=== PATIENT | female | born 1985 | race Caucasian/White ===

== ENCOUNTER 2020-04-30 03:20 | Inpatient (IN) | payer BC ==
[2020-04-30 05:01] LABS: Basophils % (A) 0 %; Eosinophils % (A) 0 %; HCT 38.8 % (34.0-46.0); HGB 13.6 gm/dL (11.4-16.0); Lymphocytes # (A) 1.2 k/uL (1.0-4.8); Lymphocytes % (A) 6 %; MCHC 35.2 g/dL (31.0-37.0); MCV 93.8 fL (80.0-100.0); Mean Platelet Volume 7.7; Monocytes # (A) 0.5 k/uL (0-1.0); Monocytes % (A) 2 %; Neutrophils # (A) 19.1 k/uL (1.3-7.7); Neutrophils % (A) 92 %; Platelet Count 278 k/uL (150-450); RBC 4.14 m/uL (3.80-5.40); RDW 12.8 % (11.5-15.5); WBC 20.9 k/uL (3.8-10.6)
[2020-04-30] MEDS ORDERED: CARBOPROST TROMETHAMINE 250 MCG/ML 1 ML AMP IM PRN (05:03)
[2020-04-30] MEDS ORDERED: OXYTOCIN 10 UNIT/ML 1 ML VIAL IM PRN (05:03)
[2020-04-30] MEDS ORDERED: TERBUTALINE 1 MG/ML VIAL SQ PRN (05:03)
[2020-04-30] MEDS ORDERED: LIDOCAINE 0.5% (PF) 5 MG/ML (50 ML SDV) SQ PRN (05:03)
[2020-04-30] MEDS ORDERED: METHYLERGONOVINE 0.2 MG/ML 1 ML AMP IM PRN (05:03)
[2020-04-30 05:10] LABS: Creatinine,Urine Random 144.7 mg/dL; Protein/Creatinine Ratio,Urine 0.097
[2020-04-30 05:12] LABS: ALT 10 U/L (4-34); AST 18 U/L (14-36); African American GFR (CKD) >90 (>60 ml/min/1.73 sqM); Blood Urea Nitrogen 11 mg/dL (7-17); LDH 492 U/L (313-618); Non-African American GFR(CKD) >90 (>60 ml/min/1.73 sqM); Uric Acid 4.3 mg/dL (3.7-7.4)
[2020-04-30] MEDS ORDERED: LACTATED RINGERS 1,000 ML IV SCH (05:15)
[2020-04-30 05:37] LABS: Appearance,Urine Cloudy (Clear); Bacteria,Urine Rare /hpf; Bilirubin,Urine Negative (Negative); Blood,Urine Trace (Negative); Color,Urine Yellow; Glucose,Urine (UA) Negative (Negative); Hyaline Casts,Urine 1 /lpf (0-2); Ketones,Urine 1+ (Negative); Leukocyte Esterase,Urine Large (Negative); Mucus,Urine Rare /hpf; Nitrite,Urine Negative (Negative); Protein,Urine Trace (Negative); RBC,Urine 1 /hpf (0-5); Squamous Epithelial Cell,Urine 9 /hpf (0-4); Urobilinogen,Urine <2.0 mg/dL (<2.0); WBC,Urine 15 /hpf (0-5)
[2020-04-30] MEDS: LACTATED RINGERS 1,000 ML IV SCH (06:15)
--- NOTE | 2020-04-30 06:34 | P.HPOB ---
History of Present Illness H&P Date: 04/30/20 Chief Complaint: Labor at 39-2/7 weeks' This is a 34-year-old 1 para 0 woman with an estimated due date of 05/04/2020 based on LMP consistent with 20 week ultrasound who presents in spontaneous active labor. She had onset of contractions on at approximately 10 PM last night which did progress. She presented to labor and delivery triage and was found to be in active labor having progress from 1-4 cm during observation. She did have some elevated blood pressures in triage in the 160s over 80s. She had no prior history of hypertension in the . She de nied headaches, visual changes, vaginal bleeding. has been otherwise uncomplicated. She is of advanced maternal age. She has a history of esophageal achalasia with difficulty swallowing. Laboratory data: Blood type A+, antibody screen negative, rubella immune, VDRL nonreactive, hepatitis B surface antigen negative, HIV negative, gonorrhea and clinically cultures negative, glucose tolerance testing within normal limits, group B strep negative. Review of Systems All systems: negative Past Medical History Past Medical History: GERD/Reflux Additional Past Medical History / Comment(s): ACHALASIA OF ESOPHAGUS History of Any Multi-Drug Resistant Organisms: None Reported Additional Past Surgical History / Comment(s): EGD, MULTIPLE SURGERYS ON ESOPHAGUS- SURGERY ON FLAP IN ESOPHAGUS AND ESOPHAGUS WAS NICKED AND HAD TO BE REPAIRED BY GOING THROUGH HER BACK. Past Anesthesia/Blood Transfusion Reactions: No Reported Reaction Past Psychological History: No Psychological Hx Reported Smoking Status: Current every day smoker Past Alcohol Use History: None Reported, Rare Past Drug Use History: None Reported - Past Family History Mother Family Medical History: Cancer Additional Family Medical History / Comment(s): MELANOMA Medications and Allergies Home Medications Medication Instructions Recorded Confirmed Type Omeprazole [PriLOSEC] 20 mg PO AC-BID 04/30/20 04/30/20 History Pnv No.95/Ferrous Fum/Folic AC 1 each PO DAILY 04/30/20 04/30/20 History [ Multivitamin Tablet] Allergies Allergy/AdvReac Type Severity Reaction Status Date / Time steve Allergy Unknown THROAT Verified 04/30/20 03:26 SWELLING , DYSPNEA Exam Vital Signs Temp Pulse Resp BP 04/30/20 05:37 98.2 F 72 16 165/92 Intake and Output 04/29/20 04/29/2004/30/21 14:59 22:59 06:59 Other: Weight 76.204 kg Breathing, 9+ centimeters dilated. She's had spontaneous rupture of membranes with thick meconium-stained fluid. She has category 2 heart tones with intermittent deep variable heart rate deceleration in the setting of over all good variability and accelerations. Results Result Diagrams: 04/30/20 04:44 04/30/20 04:44 Abnormal Lab Results - Last 24 Hours (Table) 04/30/20 04/30/20 04/30/20 Range/Units 04:44 04:44 04:44 WBC 20.9 H (3.8-10.6) k/uL Neutrophils # 19.1 H (1.3-7.7) k/uL Urine Appearance Cloudy H (Clear) Urine Protein Trace H (Negative) Urine Ketones 1+ H (Negative) Urine Blood Trace H (Negative) Ur Leukocyte Esterase Large H (Negative) Urine WBC 15 H (0-5) /hpf Ur Squamous Epith Cells 9 H (0-4) /hpf Urine Bacteria Rare H (None) /hpf Urine Mucus Rare H (None) /hpf U Random Total Protein 14 H (<12) mg/dL Assessment and Plan (1) 39 weeks gestation of Current Visit: Yes Status: Acute Code(s): Z3A.39 - 39 WEEKS GESTATION OF SNOMED Code(s): 64997491 (2) Spontaneous onset of labor Current Visit: Yes Status: Acute Code(s): DUK3634 - SNOMED Code(s): 34412001 (3) Spontaneous rupture of membranes Current Visit: Yes Status: Acute Code(s): XGY6801 - SNOMED Code(s): 333819092 (4) Meconium in amniotic fluid Current Visit: Yes Status: Acute Code(s): P96.83 - MECONIUM STAINING SNOMED Code(s): 8056812 (5) Advanced maternal age (AMA) in Current Visit: Yes Status: Acute Code(s): WZQ7508 - SNOMED Code(s): 285489448 Plan: 34-year-old 1 para 0 woman who presents in active labor at 39+ weeks gestation. Spontaneous rupture of membranes is occurred with thick meconium- stained fluid. heart tones are category 2. She did have elevated blood pressures upon admission with no prior history of hypertension in the . PIH labs within normal limits. She is group B strep negative and Rh+. I anticipate normal spontaneous vaginal delivery
--- NOTE | 2020-04-30 07:20 | P.PROBDLV ---
Vaginal Delivery Note - . Vaginal Delivery Note: Findings: Female in the left occiput anterior position with Apgars of 8 at 1 minute and 9 at 5 minutes weighing 5 lbs. 1 oz., 2305 g. Copious thick particulate meconium stained fluid. Calcified small placenta with meconium staining of the membranes. EBL 100 mL's. Second-degree perineal laceration. Delivery summary: This is a 34-year-old 1 para 0 woman who presented at 39-2/7 weeks' gestation in spontaneous active labor. Upon presentation to labor and delivery triage she was 1 cm dilated and progressed to 4 cm dilated during observation. She was regularly corrine. She was therefore admitted. She did have elevated blood pressures on presentation with no prior history of hypertension. PIH labs were within normal limits. Following admission she rapidly progressed to 9 cm dilated. She had spontaneous rupture of membranes at 622 and thick meconium-stained fluid was noted. She developed irregular variable heart rate celebrations with overall good variability and accelerations. She reached complete cervical dilation at 625.. She commenced pushing with strong maternal effort she had deep heart rate variable decelerations with maternal effort down to the 80 bpm with return to baseline of the 110s to 120s beats per minute with variability. She was making excellent progress in descent of the vertex. The [employer] was notified to be on standby secondary to thick meconium-stained fluid. Patient reached and was repositioned, prepped and draped in the dorsal modified Koko position. Maternal O2 had been in place. With additional maternal effort the perineum was infused with lidocaine in anticipation of performing episiotomy however the patient then did deliver the head from the left occiput anterior position rapidly followed by the rest of the infant onto the field. There was copious thick meconium-stained fluid at the time of delivery. The infant had spontaneous cry immediately following delivery. The nose and mouth were carefully and thoroughly bulb suctioned. The cord was clamped and cut and the infant was taken to the warmer for evaluation. Apgars were 8 at 1 minute and 9 at 5 minutes and weight was 5 lbs. 1 oz., 2305 g. The perineum was inspected and a second-degree laceration was noted. This was further infused with lidocaine and repaired with 3-0 Vicryl suture. With gentle downward traction on the placenta the cord did a false from the placenta prior to delivery. The cord was noted to be quite thin. The the leading edge of the placenta was then grasped with a ring forcep and was delivered with maternal effort. Of note the placenta appeared small with approximately one quarter having firm calcification. The membranes were meconium-stained. The uterus was massaged and was noted to be firm below the level of the umbilicus. The patient received Pitocin following the third stage of labor which was approximately 10 minutes long. The rest of the vagina, perineum and cervix were inspected and no further lacerations were noted. All counts were correct. The was taken to the special care nursery for further evaluation. Cord blood gases were drawn.
[2020-04-30] MEDS ORDERED: HYDROCORTISONE 2.5% RECTAL CREAM 30 GM TUBE RECTAL PRN (07:35)
[2020-04-30] MEDS ORDERED: SIMETHICONE 80 MG CHEWABLE PO PRN (07:35)
[2020-04-30] MEDS ORDERED: ACETAMINOPHEN TAB 325 MG TAB PO PRN (07:35)
[2020-04-30] MEDS ORDERED: diphenhydrAMINE 50 MG CAP PO PRN (07:35)
[2020-04-30] MEDS ORDERED: ZOLPIDEM 5 MG TAB PO PRN (07:35)
[2020-04-30] MEDS ORDERED: BENZOCAINE/MENTHOL SPRAY 1 GM/SPRAY AEROSOL TOPICAL PRN (07:35)
[2020-04-30] MEDS ORDERED: diphenhydrAMINE 25 MG CAP PO PRN (07:35)
[2020-04-30] MEDS ORDERED: diphenhydrAMINE 50 MG/ML 1 ML VIAL IVP PRN ×2 (07:35)
[2020-04-30] MEDS ORDERED: OXYTOCIN 30 UNITS/500 ML NS 30 UNIT in SALINE 1 500ML.BAG IV SCH (07:45)
[2020-04-30] MEDS: IBUPROFEN 600 MG TAB PO PRN ×2 (08:15→18:14)
[2020-04-30] MEDS ORDERED: CALCIUM CARBONATE 500 MG CHEWABLE PO PRN (08:29)
[2020-04-30] MEDS: SENNOSIDES-DOCUSATE SODIUM 1 EACH TAB PO SCH (09:03)
[2020-05-01] MEDS: LACTATED RINGERS 1,000 ML IV SCH (05:08)
[2020-05-01] MEDS: SENNOSIDES-DOCUSATE SODIUM 1 EACH TAB PO SCH ×3 (05:08→21:31)
[2020-05-01 07:11] LABS: Basophils # (A) 0.1 k/uL (0-0.2); Basophils % (A) 0 %; Eosinophils # (A) 0.1 k/uL (0-0.7); Eosinophils % (A) 1 %; HCT 32.1 % (34.0-46.0); HGB 11.2 gm/dL (11.4-16.0); Lymphocytes # (A) 2.3 k/uL (1.0-4.8); Lymphocytes % (A) 17 %; MCH 33.6 pg (25.0-35.0); MCHC 34.8 g/dL (31.0-37.0); MCV 96.5 fL (80.0-100.0); Mean Platelet Volume 8.6; Monocytes # (A) 0.6 k/uL (0-1.0); Monocytes % (A) 4 %; Neutrophils # (A) 10.3 k/uL (1.3-7.7); Neutrophils % (A) 77 %; Platelet Count 188 k/uL (150-450); RBC 3.33 m/uL (3.80-5.40); WBC 13.4 k/uL (3.8-10.6)
--- NOTE | 2020-05-01 10:54 | P.PNOBGVD ---
Subjective - Subjective Patient reports: Reports appetite normal, Reports voiding normally, Reports pain well controlled, Reports ambulating normally : doing well, in NICU Objective - Latest Vital Signs Latest vital signs: Vital Signs Temp Pulse Resp BP Pulse Ox 05/01/20 08:00 97.9 F 69 16 125/87 05/01/20 00:00 98.4 F 97 16 126/74 04/30/20 16:00 98.7 F 65 18 139/80 100 04/30/20 12:00 98.9 F 60 18 124/74 99 Intake and Output 04/30/20 05/01/20 05/01/20 22:59 06:59 14:59 Output Total 1 Balance -1 Output: Urine 1 Other: # Voids 1 - Exam Extremities: Present: normal Abdomen: Present: normal appearance, soft Uterus: Present: normal, firm (Uterine fundus is tonic and nontender below the umbilicus.) - Labs Labs: Abnormal Lab Results - Last 24 Hours (Table) 05/01/20 Range/Units 06:46 WBC 13.4 H (3.8-10.6) k/uL RBC 3.33 L (3.80-5.40) m/uL Hgb 11.2 L (11.4-16.0) gm/dL Hct 32.1 L (34.0-46.0) % Neutrophils # 10.3 H (1.3-7.7) k/uL Assessment and Plan (1) Normal spontaneous vaginal delivery Current Visit: Yes Status: Acute Code(s): O80 - ENCOUNTER FOR FULL-TERM UNCOMPLICATED DELIVERY SNOMED Code(s): 71226489 Plan: Continue routine care. Infant may be able to come to the floor later this afternoon if feeding improved. I would anticipate discharge home tomorrow pending no complications.
[2020-05-01] MEDS: IBUPROFEN 600 MG TAB PO PRN (15:03)
[2020-05-02] MEDS: SENNOSIDES-DOCUSATE SODIUM 1 EACH TAB PO SCH (08:00)
[2020-05-02 08:52] VITALS: BP 90/55; PULSE 68; RESP 18; TEMP 98
--- NOTE | 2020-05-02 10:17 | P.DS ---
Providers Date of admission: 04/30/20 04:56 Expected date of discharge: 05/02/20 Attending physician: Sierra Mitchell Primary care physician: Stated None - Discharge Diagnosis(es) (1) Normal spontaneous vaginal delivery Current Visit: Yes Status: Acute Hospital Course: Is a 34-year-old 1 para 0 admitted at 39-2/7 weeks by good dating parameters. She is admitted in early labor with all signs reassuring. Her has been uncomplicated aside from qualifying as advanced maternal age. She did decline testing for trisomy. Group B strep status was negative. On labor and delivery, she made fairly rapid progress to the active phase of labor and had spontaneous rupture of membranes demonstrating thick meconium-stained fluid. She then progressed further to complete for a quickly and pushed to a normal spontaneous vaginal delivery of a viable 5 lbs. 1 oz. baby girl with Apgars of 8 at 1 minute and 9 at 5 minutes. The was immediately vigorous and anesthesia was at standby for direct laryngoscopy which was not necessary. The , however, did develop some respiratory issues and was taken the special care nursery for observation. The patient's post course was unremarkable with vital signs remaining stable and her temperature was afebrile throughout. She was deemed stable for discharge by day #2 at which time the had also been released. She was discharged home to follow-up in the office in 6 weeks' time routinely. Discharge instructions included calling for any significantly increased bleeding or foul-smelling lochia, significantly increased fever abdominal pain, perineal complaints, breast complaints, or anything else that concerned her. She was additionally instructed to have nothing in the vagina for at least 6 weeks time to include intercourse. She understood her instructions and agrees to follow up as noted above. Discharge medications included only [id number] analgesic pain medications. She has opted not to breast-feed but still was recommended to continue vitamins for some time. Maternal blood type is A+ and rubella status is immune. Procedures: #1. Normal spontaneous vaginal delivery #2. Repair of perineal laceration Patient Condition at Discharge: Stable Plan - Discharge Summary New Discharge Prescriptions: No Action Omeprazole [PriLOSEC] 20 mg PO AC-BID Pnv No.95/Ferrous Fum/Folic AC [ Multivitamin Tablet] 1 each PO DAILY Discharge Medication List Omeprazole [PriLOSEC] 20 mg PO AC-BID 04/30/20 [History] Pnv No.95/Ferrous Fum/Folic AC [ Multivitamin Tablet] 1 each PO DAILY 04/30/20 [History] Follow up Appointment(s)/Referral(s): Sierra Mitchell MD [STAFF PHYSICIAN] - 6 Weeks Discharge Disposition: HOME SELF-CARE
== END 2020-05-02 11:00 | disposition home or self-care (01) | DRG 807 ==
LOC: FBPOP 03:20 → 4FBP 04:56
PROVIDERS: ADMIT Obstetrics & Gynecology; ATTEND Obstetrics & Gynecology
PROC: 10E0XZZ Delivery of Products of Conception, External Approach (ICD-10-PCS; principal; 2020-04-30)
PROC: 0KQM0ZZ Repair Perineum Muscle, Open Approach (ICD-10-PCS; principal; 2020-04-30)
DX: O77.0 Labor and delivery complicated by meconium in amniotic fluid (principal); Z37.0 Single live birth; O76 Abnormality in fetal heart rate and rhythm complicating labor and delivery; O99.334 Smoking (tobacco) complicating childbirth; O70.1 Second degree perineal laceration during delivery; F17.210 Nicotine dependence, cigarettes, uncomplicated; Z3A.39 39 weeks gestation of pregnancy; Z80.8 Family history of malignant neoplasm of other organs or systems; K22.0 Achalasia of cardia; R13.10 Dysphagia, unspecified; R03.0 Elevated blood-pressure reading, without diagnosis of hypertension
CPT/HCPCS: 59025; 81001; 82565; 82570; 83615; 84156; 84450; 84460; 84520; 84550; 85025; 99215